=== PATIENT | female | born 1935 | race Caucasian/White ===

== ENCOUNTER → 2017-04-03 | Outpatient (CLI) | payer OTHER, BC | LOC: RAD 10:04 | DX: R05 Cough (principal) ==

== ENCOUNTER → 2017-05-15 | Outpatient (CLI) | payer OTHER, BC | LOC: CAT 09:26 | DX: J98.11 Atelectasis (principal); R91.1 Solitary pulmonary nodule ==

== ENCOUNTER → 2017-08-26 | Outpatient (CLI) | payer OTHER, BC | LOC: CAT 08-18 00:03 | DX: R91.1 Solitary pulmonary nodule (principal); J98.11 Atelectasis; R91.8 Other nonspecific abnormal finding of lung field ==

== ENCOUNTER 2017-10-01 17:07 | Emergency (ER) | payer OTHER, BC ==
[~2017-10-01] VITALS: Ht 157.5 cm; Wt 54.4 kg
--- NOTE | ~2017-10-01 | EKG ---
[place] [address] [facility] [place] [address] ELECTROCARDIOGRAM REPORT Name: ALON NEVES [id number] Admission: 10/01/17 Attend Phys: Discharge: 10/01/17 Date of : 35 Report #: [id number] THIS REPORT FOR: //name// [facility] ED Test Date: 2017-10-01 Test Time: 17:47:48 Pat Name: ALON NEVES Department: Room: Gender: F Executive Office Manager: [facility] : 1935 Requested By: Salomón Lemon Order Number: [id number] MD: Joseph Beltran Measurements Intervals [place] Rate: 82 P: 30 VT: 185 QRS: -15 QRSD: 85 T: 86 QT: 412 QTc: 482 Interpretive Statements Sinus rhythm Ventricular bigeminy Borderline left axis deviation No previous ECG available for comparison Electronically Signed On 10-02-2017 9:01:10 PUBLICITY AGENT by Joseph Beltran [email or web address] <ELECTRONICALLY SIGNED> By: Joseph Beltran MD, [facility] 10/02/17 0901 1747 174 Joseph Beltran MD, FACC /EPI
[2017-10-01 17:56] LABS: ABSOLUTE NEUTROPHILS 7.7 thou/uL (1.4-8.2); BASOPHILS 0.7 % (0.0-2.0); EOSINOPHILS 0.4 % (0.0-3.0); HEMOGLOBIN 14.9 gm/dL (12.0-15.0); LYMPHOCYTES 3.6 % (24.0-44.0); MCH 31.3 pg (26.0-34.0); MCHC 33.8 g/dL (28.0-37.0); MCV 92.6 fL (80.0-100.0); MONOCYTES 2.6 % (1.0-8.0); PLATELET COUNT 165 thou/uL (150-400); POLYS 92.7 % (36.0-66.0); RBC 4.75 mil/uL (4.20-5.00); RDW 13.4 % (10.5-14.5); WBC 8.3 thou/uL (4.0-11.0)
[2017-10-01 18:05] LABS: CALCIUM 9.2 mg/dL (8.5-10.1); CREATININE 1.1 mg/dL (0.6-1.0)
[2017-10-01 18:11] LABS: ALBUMIN 3.7 g/dL (3.4-5.0); TOTAL BILIRUBIN 0.8 mg/dL (<0.1-1.0); TOTAL PROTEIN 6.4 g/dL (6.4-8.2)
[2017-10-01] MEDS ORDERED: LIPITOR10 MG PO (18:17)
[2017-10-01] MEDS ORDERED: TOPROL XL100 MG PO (18:17)
[2017-10-01] MEDS ORDERED: SYNTHROID75 MCG PO (18:17)
[2017-10-01] MEDS ORDERED: ZOFRAN ODT8 MG PO (18:46)
[2017-10-01 18:47] LABS: URINE BILIRUBIN NEGATIVE (Negative); URINE BLOOD NEGATIVE (Negative); URINE CLARITY CLEAR; URINE GLUCOSE-RANDOM* NEGATIVE (Negative); URINE KETONES NEGATIVE (Negative); URINE LEUKOCYTES NEGATIVE (Negative); URINE NITRITE NEGATIVE (Negative); URINE PROTEIN (DIPSTICK) NEGATIVE (Negative); URINE UROBILINOGEN 0.2 E.U./dl (0.2-1.0)
[2017-10-01 18:48] LABS: URINE COLOR YELLOW
== END 2017-10-01 19:06 | disposition home or self-care (01) ==
LOC: ER 17:07
PROVIDERS: Physician Assistant
DX: R19.7 Diarrhea, unspecified (principal); R11.2 Nausea with vomiting, unspecified; E86.0 Dehydration